=== PATIENT | female | born 1960 | race Caucasian/White ===

== ENCOUNTER 2020-03-25 07:39 | Day surgery (SDC) | payer BC, OTHER ==
[~2020-03-25 07:39] MED LIST: Midazolam 1 MG/ML 2 ML SDV ONE; fentaNYL 100 MCG/2 ML SDV ONE
[2020-03-25] MEDS ORDERED: Midazolam 1 MG/ML 2 ML SDV IV ONE ×10 (07:40→08:45)
[2020-03-25] MEDS ORDERED: fentaNYL 100 MCG/2 ML SDV IV ONE ×3 (07:40→08:35)
[2020-03-25] MEDS ORDERED: Dextrose 5%-0.45% NaCl 1,000 ML IV SCH (08:30)
[2020-03-25 13:58] VITALS: BP 118/73; PULSE 46
--- NOTE | 2020-03-25 15:08 | OR ---
DATE: 03/25/2020 PREOPERATIVE DIAGNOSIS: Screening colonoscopy. POSTOPERATIVE DIAGNOSIS: Screening colonoscopy. PROCEDURE: Total colonoscopy. ANESTHESIA: Conscious sedation with IV Versed and fentanyl. SPECIMEN: None. FINDINGS: Normal colonoscopy. RECOMMENDATIONS: Followup screening colonoscopy in10 years or earlier for symptoms. INDICATION FOR PROCEDURE: This 60-year-old female had a colonoscopy about 15 years ago. She is due for followup screening. PROCEDURE IN DETAIL: After adequate preparation, a colonoscope was inserted into the rectum. This was easily passed all the way to the cecum. Confirmation of the cecum was made by visualization of the ileocecal valve and the appendiceal orifice. The bowel prep was excellent. On withdrawal of the scope, no abnormalities were noted. There are no polyps, bleeding sites, colitis, or evidence of diverticula. Rectal and anal examination were also normal. Air was suctioned from the colon and the scope removed. [facility] /[id number]
== END 2020-03-25 10:35 | disposition home or self-care (01) ==
LOC: DL.ENDO 07:39
PROVIDERS: ATTEND Surgery
DX: Z12.11 Encounter for screening for malignant neoplasm of colon (principal); Z79.82 Long term (current) use of aspirin; Z98.890 Other specified postprocedural states; Z88.6 Allergy status to analgesic agent; Z88.1 Allergy status to other antibiotic agents; Z91.040 Latex allergy status; Z91.013 Allergy to seafood; Z88.5 Allergy status to narcotic agent
CPT/HCPCS: 45378; J2250; J3010; J7042

== ENCOUNTER 2020-06-23 14:26 | Observation (INO) | payer BC, OTHER ==
[2020-06-23] MEDS ORDERED: Sodium Chloride 0.9% 10 ML Syringe FLUSH PRN (14:29)
[2020-06-23] MEDS ORDERED: Ondansetron 4 MG/2 ML SDV IV ONE (14:52)
[2020-06-23 15:26] LABS: ANION GAP 13.9 mEq/L (7-13); CHLORIDE,CL 101 mmol/L (98-107); SODIUM,NA 140 mmol/L (136-145)
--- NOTE | 2020-06-23 15:33 | CT ---
PROCEDURE INFORMATION: Exam: CT Head Without Contrast Exam date and time: 06/23/2020 3:13 PM Age: 60 years old Clinical indication: Syncope and collapse TECHNIQUE: Imaging protocol: Computed tomography of the head without contrast. Radiation optimization: All CT scans at this facility use at least one of these dose optimization techniques: automated exposure control; mA and/or kV adjustment per patient size (includes targeted exams where dose is matched to clinical indication); or iterative reconstruction. COMPARISON: No relevant prior studies available. FINDINGS: Brain: Normal. No hemorrhage. Unremarkable white matter. No mass effect. Cerebral ventricles: No ventriculomegaly. Bones/joints: Unremarkable. No acute fracture. Paranasal sinuses: Visualized sinuses are unremarkable. No fluid levels. Mastoid air cells: Visualized mastoid air cells are well aerated. Soft tissues: Unremarkable. IMPRESSION: No acute intracranial abnormality.
[2020-06-23] MEDS ORDERED: Lidocaine 1% 30 ML SDV ONE (15:35)
[2020-06-23] MEDS ORDERED: Famotidine 20 MG/2 ML SDV IVPUSH ONE (15:37)
--- NOTE | 2020-06-23 15:54 | EDM.PDOC ---
Scribed by Dinora Akers 06/23/20 1518 for Vazquez León MD ED HPI GENERAL MEDICAL PROBLEM - General Chief Complaint: Syncope Stated Complaint: UNKNOWN Time Seen by Provider: 06/23/20 14:35 Source of Information: Reports: Patient, RN, RN Notes Reviewed History Limitations: Reports: No Limitations - History of Present Illness INITIAL COMMENTS - FREE TEXT/NARRATIVE: Patient presents to ED by wheelchair from the OB Department as she was witnessed going unresponsive for several seconds while being spoken to by an other co- worker. She was reported to twitch mildly before opening eyes and then became nauseated and dry heaving. Patient is currently alert and orientated and has complaint of chest discomfort and left shoulder pain upon arrival to the ER. Onset: Today Duration: Resolved Prior to Arrival Location: Reports: Generalized Severity: Moderate Improves with: Reports: None Worsens with: Reports: None Associated Symptoms: Reports: No Other Symptoms Left Shoulder Pain Score (Numeric/FACES): 3 - Related Data Allergies Allergy/AdvReac Type Severity Reaction Status Date / Time aspirin Allergy Weakness Verified 06/23/20 14:38 fish oil Allergy Cannot Verified 06/23/20 14:38 Remember Iodinated Contrast Media Allergy Nausea Verified 06/23/20 14:38 [Iodinated Contrast Media - IV Dye] Latex, Natural Rubber Allergy Rash Verified 06/23/20 14:38 levofloxacin [From Levaquin] Allergy Hives Verified 06/23/20 14:38 morphine Allergy Nausea Verified 06/23/20 14:38 povidone-iodine Allergy Hives Verified 06/23/20 14:38 [From Betadine] shellfish derived Allergy Cannot Verified 06/23/20 14:38 Remember soap [From Betadine] Allergy Hives Verified 06/23/20 14:38 control pills Allergy Other Uncoded 06/23/20 14:38 Home Meds: Home Meds Celecoxib [CeleBREX] 200 mg PO BID 05/19/14 [History] Citalopram Hydrobromide [Celexa] 40 mg PO BEDTIME 05/19/14 [History] Levothyroxine [Sythroid] 100 mcg PO DAILY 05/19/14 [History] Triamterene/Hydrochlorothiazid [Dyazide 37.5-25 Capsule] 1 each PO DAILY 05/19/14 [History] Melatonin/Pyridoxine HCl (B6) [Melatonin 5 mg Tablet] 5 mg PO BEDTIME PRN 03/31/15 [History] Acyclovir [Zovirax] 1 - 2 tab PO ASDIRECTED PRN 04/05/19 [History] Clindamycin HCl 300 mg PO ASDIRECTED PRN 04/05/19 [History] Dicyclomine [Bentyl] 20 mg PO Q6H PRN 04/05/19 [History] Ketorolac [Toradol] 10 mg PO TID PRN 04/05/19 [History] Naproxen Sodium [Aleve] 220 mg PO TID PRN 04/05/19 [History] Penciclovir [Denavir] 5 gm TP ASDIRECTED PRN 04/05/19 [History] Phenazopyridine [Pyridium] 100 mg PO TID PRN 04/05/19 [History] nitrofurantoin macrocrystaL [Macrodantin] 50 mg PO DAILY 04/05/19 [History] Ascorbic Acid [Vitamin C] 1,000 mg PO DAILY 02/29/20 [History] Magnesium 30 mg PO DAILY 02/29/20 [History] Past Medical History HEENT History: Reports: Other (See Below) Other HEENT History: lasix procedure Cardiovascular History: Reports: Hypertension Respiratory History: Reports: None Gastrointestinal History: Reports: Irritable Bowel Syndrome Genitourinary History: Reports: UTI, Recurrent Other Genitourinary History: on daily antibiodic for uti [employer] History: Reports: Musculoskeletal History: Reports: Back Pain, Chronic, Neck Pain, Chronic Neurological History: Reports: Migraines Psychiatric History: Reports: None Endocrine/Metabolic History: Reports: Hypothyroidism Hematologic History: Reports: None Immunologic History: Reports: None Oncologic (Cancer) History: Reports: None Dermatologic History: Reports: None - Infectious Disease History Infectious Disease History: Reports: Chicken Pox, Measles - Past Surgical History HEENT Surgical History: Reports: None Cardiovascular Surgical History: Reports: None GI Surgical History: Reports: Katia Fundoplication, Other (See Below) Female Surgical History: Reports: Hysterectomy Other Female Surgeries/Procedures: urethral dilation, bladder repair Neurological Surgical History: Reports: Laminectomy Musculoskeletal Surgical History: Reports: Knee Replacement, Other (See Below) Other Musculoskeletal Surgeries/Procedures:: 3 vertebrae fused Social & Family History - Family History Family Medical History: Noncontributory - Caffeine Use Caffeine Use: Reports: Coffee Caffeine Use Comment: 16 oz daily ED ROS GENERAL - Review of Systems Review Of Systems: Comprehensive ROS is negative, except as noted in HPI. ED EXAM, GENERAL - Physical Exam Exam: See Below Exam Limited By: No Limitations General Appearance: Alert, Anxious, Mild Distress, Obese Eye Exam: Bilateral Eye: EOMI, Normal Inspection (No scleral icterus), PERRL Nose: Normal Inspection, Normal Mucosa, No Blood Throat/Mouth: Normal Inspection, Normal Lips, Normal Teeth, Normal Gums, Normal Oropharynx, Normal Voice, No Airway Compromise Head: Atraumatic, Normocephalic Neck: Normal Inspection, Supple, Non-Tender, Full Range of Motion Respiratory/Chest: No Respiratory Distress, Lungs Clear, Normal Breath Sounds, No Accessory Muscle Use, Chest Non-Tender Cardiovascular: Normal Peripheral Pulses, Regular Rate, Rhythm, No Edema, No Gallop, No JVD GI/Abdominal: Normal Bowel Sounds, Soft, Non-Tender, No Organomegaly, No Distention, No Abnormal Bruit, No Mass Back Exam: Normal Inspection, Full Range of Motion, NT Extremities: Normal Inspection, Normal Range of Motion, Non-Tender, Normal Capillary Refill, No Pedal Edema Neurological: Alert, Oriented, CN II-XII Intact, Normal Cognition, No Motor/Sensory Deficits Psychiatric: Anxious Skin Exam: Warm, Intact, Normal Color, Diaphoretic. No: Cyanosis, Ecchymosis, Jaundice, Petechiae #1 Interpretation EKG Date: 06/23/20 Time: 14:40 Rhythm: Other (sinus rhythm) Rate (Beats/Min): 64 [place]: Normal P-Wave: Present QRS: Other (early precordial R/S tramsition.) Course - Vital Signs Last Recorded V/S: Last Vital Signs Temp 97.9 F 06/23/20 14:41 Pulse 68 06/23/20 14:41 Resp 14 06/23/20 14:41 BP 120/53 L 06/23/20 14:41 Pulse Ox 100 06/23/20 14:41 Orthostatic Blood Pressure [ 100/50 Standing] Orthostatic Blood Pressure [ 93/50 Sitting] Orthostatic Blood Pressure [ 96/54 Supine] Not orthostatic. - Orders/Labs/Meds Orders: Active Orders 24 hr Category Date Time Status Admission Diagnosis [ADT] Routine ADT 06/23/20 15:40 Ordered Patient Status [ADT] Routine ADT 06/23/20 15:40 Active EKG 12 Lead [EKG Documentation Completion] [RC] STAT Care 06/23/20 14:28 Active Peripheral IV Care [RC] . DIRECTED Care 06/23/20 14:29 Active Chest 1V Frontal [CR] Stat Exams 06/23/20 14:28 Taken CBC WITH AUTO DIFF [HEME] Stat Lab 06/23/20 14:36 Results CORONAVIRUS COVID-19 RAPID [MOLEC] Stat Lab 06/23/20 14:55 Received MANUAL DIFFERENTIAL QA/NC [HEME] Stat Lab 06/23/20 14:36 Results Sodium Chloride 0.9% [Saline Flush] Med 06/23/20 14:29 Active 10 ml FLUSH ASDIRECTED PRN Sodium Chloride 0.9% with KCl [Normal Saline with 40 Med 06/23/20 15:45 Active mEq KCl] 1,000 ml IV ASDIRECTED Peripheral IV Insertion Adult [OM.PC] Stat Oth 06/23/20 14:29 Ordered Medication Orders Potassium Chloride/Sodium Chloride (Normal Saline With 40 Meq Kcl) 1,000 mls @ 250 mls/hr IV ASDIRECTED SKYE Sodium Chloride (Saline Flush) 10 ml FLUSH ASDIRECTED PRN PRN Reason: Keep Vein Open Last Admin: 06/23/20 14:57 Dose: 10 ml Documented by: CHRIS Labs: Laboratory Tests 06/23/20 06/23/20 06/23/20 Range/Units 14:36 14:36 14:36 WBC 9.5 (5.0-10.0) 10^3/uL RBC 4.92 (4.2-5.4) 10^6/uL Hgb 14.8 (12.0-16.0) g/dL Hct 42.9 (37.0-47.0) % MCV 87.2 (80-100) fL MCH 30.1 (27.0-34.0) pg MCHC 34.5 (33.0-35.0) g/dL Plt Count 245 (150-450) 10^3/uL Neut % (Auto) 49.8 (42.2-75.2) % Lymph % (Auto) 40.0 (20.5-50.1) % [place] % (Auto) 8.6 H (2-8) % Eos % (Auto) 1.2 (1.0-3.0) % Baso % (Auto) 0.4 (0.0-1.0) % Add Manual Diff Yes D-Dimer, Quantitative 397 (0-400) ng/mL Sodium 140 (136-145) mmol/L Potassium 2.9 L (3.5-5.1) mmol/L Chloride 101 (98-107) mmol/L Carbon Dioxide 28 (21-32) mmol/L Anion Gap 13.9 H (7-13) mEq/L BUN 21 H (7-18) mg/dL Creatinine 0.94 (0.55-1.02) mg/dL Est Cr Clr Drug Dosing 56.33 mL/min Estimated GFR (MDRD) > 60 BUN/Creatinine Ratio 22.3 (No establ ref range) Glucose 116 H (74-99) mg/dL Calcium 9.2 (8.5-10.1) mg/dL Total Bilirubin 0.3 (0.2-1.0) mg/dL AST 11 L (15-37) U/L ALT 21 (14-59) U/L Alkaline Phosphatase 76 (46-116) U/L Creatine Kinase 62 (16-191) U/L Troponin I < 0.017 (0.000-0.056) ng/mL Total Protein 7.0 (6.4-8.2) g/dL Albumin 3.6 (3.4-5.0) g/dL Globulin 3.4 Albumin/Globulin Ratio 1.1 Amylase (25-115) U/L Lipase (73-393) U/L Urine Color (YELLOW) Urine Appearance (CLEAR) Urine pH (5.0-9.0) Ur Specific [place] (1.005-1.030) Urine Protein (NEGATIVE) Urine Glucose (UA) (NEGATIVE) Urine Ketones (NEGATIVE) Urine Occult Blood (NEGATIVE) Urine Nitrite (NEGATIVE) Urine Bilirubin (NEGATIVE) Urine Urobilinogen (0.2-1.0) mg/dL Ur Leukocyte Esterase (NEGATIVE) 06/23/20 06/23/20 Range/Units 14:36 15:05 WBC (5.0-10.0) 10^3/uL RBC (4.2-5.4) 10^6/uL Hgb (12.0-16.0) g/dL Hct (37.0-47.0) % MCV (80-100) fL MCH (27.0-34.0) pg MCHC (33.0-35.0) g/dL Plt Count (150-450) 10^3/uL Neut % (Auto) (42.2-75.2) % Lymph % (Auto) (20.5-50.1) % [place] % (Auto) (2-8) % Eos % (Auto) (1.0-3.0) % Baso % (Auto) (0.0-1.0) % Add Manual Diff D-Dimer, Quantitative (0-400) ng/mL Sodium (136-145) mmol/L Potassium (3.5-5.1) mmol/L Chloride (98-107) mmol/L Carbon Dioxide (21-32) mmol/L Anion Gap (7-13) mEq/L BUN (7-18) mg/dL Creatinine (0.55-1.02) mg/dL Est Cr Clr Drug Dosing mL/min Estimated GFR (MDRD) BUN/Creatinine Ratio (No establ ref range) Glucose (74-99) mg/dL Calcium (8.5-10.1) mg/dL Total Bilirubin (0.2-1.0) mg/dL AST (15-37) U/L ALT (14-59) U/L Alkaline Phosphatase (46-116) U/L Creatine Kinase (16-191) U/L Troponin I (0.000-0.056) ng/mL Total Protein (6.4-8.2) g/dL Albumin (3.4-5.0) g/dL Globulin Albumin/Globulin Ratio Amylase 58 (25-115) U/L Lipase 108 (73-393) U/L Urine Color Yellow (YELLOW) Urine Appearance Clear (CLEAR) Urine pH 7.0 (5.0-9.0) Ur Specific [place] >= 1.030 (1.005-1.030) Urine Protein Negative (NEGATIVE) Urine Glucose (UA) Negative (NEGATIVE) Urine Ketones Negative (NEGATIVE) Urine Occult Blood Negative (NEGATIVE) Urine Nitrite Negative (NEGATIVE) Urine Bilirubin Negative (NEGATIVE) Urine Urobilinogen 0.2 (0.2-1.0) mg/dL Ur Leukocyte Esterase Negative (NEGATIVE) Meds: Medications Generic Name Dose Route Start Last Admin Trade Name Freq PRN Reason Stop Dose Admin Potassium Chloride/Sodium Chloride 1,000 mls @ 250 mls/hr 06/23/20 15:45 Normal Saline With 40 Meq Kcl IV ASDIRECTED SKYE Sodium Chloride 10 ml 06/23/20 14:29 06/23/20 14:57 Saline Flush FLUSH 10 ml ASDIRECTED PRN Administration Keep Vein Open Discontinued Medications Generic Name Dose Route Start Last Admin Trade Name Freq PRN Reason Stop Dose Admin Famotidine 20 mg 06/23/20 15:37 06/23/20 15:43 Pepcid IVPUSH 06/23/20 15:38 20 mg ONETIME ONE Administration Lidocaine HCl 2 ml 06/23/20 15:35 Xylocaine-Mpf 1% .XX 06/23/20 15:36 ONETIME ONE Ondansetron HCl 4 mg 06/23/20 14:52 06/23/20 14:56 Zofran IV 06/23/20 14:53 4 mg ONETIME ONE Administration - Radiology Interpretation Free Text/Narrative:: [facility] Final Radiology Report Call: [phone] assistance Online chat: [email or web address] Name: MARY CASTORENA Age: 60Years F Date: 06/23/2020 SSN: -- : 1960 Study: CT HEAD WO CONT Requesting Physician: VAZQUEZ LEÓN Images: [id number] Addl Studies: Provided Clinical History: syncope Contrast: Without Contrast Medium: Contrast Amount: Contrast Method: CONFIDENTIALITY STATEMENT This report is intended only for use by the referring physician, and only in accordance with law. If you received this in error, call [phone]. Page 1 of 1 PROCEDURE INFORMATION: Exam: CT Head Without Contrast Exam date and time: 06/23/2020 3:13 PM Age: 60 years old Clinical indication: Syncope and collapse TECHNIQUE: Imaging protocol: Computed tomography of the head without contrast. Radiation optimization: All CT scans at this facility use at least one of these dose optimization techniques: automated exposure control; mA and/or kV adjustment per patient size (includes targeted exams where dose is matched to clinical indication); or iterative reconstruction. COMPARISON: No relevant prior studies available. FINDINGS: Brain: Normal. No hemorrhage. Unremarkable white matter. No mass effect. Cerebral ventricles: No ventriculomegaly. Bones/joints: Unremarkable. No acute fracture. Paranasal sinuses: Visualized sinuses are unremarkable. No fluid levels. Mastoid air cells: Visualized mastoid air cells are well aerated. Soft tissues: Unremarkable. IMPRESSION: No acute intracranial abnormality. Thank you for allowing us to participate in the care of your patient. Dictated and Authenticated by: Basilia Victoria MD 06/23/2020 3:33 PM Central Time ([place] & [place]) Departure - Departure Time of Disposition: 15:53 (admitted to Dr. Carver) Disposition: Refer to Observation Condition: Undetermined Clinical Impression: Syncope Qualifiers: Syncope type: unspecified Qualified Code(s): R55 - Syncope and collapse - Discharge Information *PRESCRIPTION DRUG MONITORING PROGRAM REVIEWED*: Not Applicable *COPY OF PRESCRIPTION DRUG MONITORING REPORT IN PATIENT SARA: Not Applicable Sepsis Event Note (ED) - Focused Exam Vital Signs: Vital Signs Temp Pulse Resp BP Pulse Ox 06/23/20 14:41 97.9 F 68 14 120/53 L 100 - My Orders Last 24 Hours: My Active Orders 06/23/20 14:28 EKG 12 Lead [EKG Documentation Completion] [RC] STAT Chest 1V Frontal [CR] Stat 06/23/20 14:29 Peripheral IV Care [RC] . DIRECTED Sodium Chloride 0.9% [Saline Flush] 10 ml FLUSH ASDIRECTED PRN Peripheral IV Insertion Adult [OM.PC] Stat 06/23/20 14:36 CBC WITH AUTO DIFF [HEME] Stat MANUAL DIFFERENTIAL QA/NC [HEME] Stat 06/23/20 14:55 CORONAVIRUS COVID-19 RAPID [MOLEC] Stat 06/23/20 15:45 Sodium Chloride 0.9% with KCl [Normal Saline with 40 mEq KCl] 1,000 ml IV ASDIRECTED - Assessment/Plan Last 24 Hours: My Active Orders 06/23/20 14:28 EKG 12 Lead [EKG Documentation Completion] [RC] STAT Chest 1V Frontal [CR] Stat 06/23/20 14:29 Peripheral IV Care [RC] . DIRECTED Sodium Chloride 0.9% [Saline Flush] 10 ml FLUSH ASDIRECTED PRN Peripheral IV Insertion Adult [OM.PC] Stat 06/23/20 14:36 CBC WITH AUTO DIFF [HEME] Stat MANUAL DIFFERENTIAL QA/NC [HEME] Stat 06/23/20 14:55 CORONAVIRUS COVID-19 RAPID [MOLEC] Stat 06/23/20 15:45 Sodium Chloride 0.9% with KCl [Normal Saline with 40 mEq KCl] 1,000 ml IV ASDIRECTED I have read and agree with the documentation that has been completed regarding this visit. By signing this record, I attest that the documentation was completed in my physical presence and is an accurate record of the encounter.
--- NOTE | 2020-06-23 16:04 | CR ---
PROCEDURE INFORMATION: Exam: XR Chest, 1 View Exam date and time: 06/23/2020 2:43 PM Age: 60 years old Clinical indication: Other: Syncope TECHNIQUE: Imaging protocol: XR of the chest Views: 1 view. COMPARISON: No relevant prior studies available. FINDINGS: Lungs: No evidence of acute pulmonary process. Pleural space: Unremarkable. No pleural effusion. No pneumothorax. Heart/Mediastinum: Unremarkable. No cardiomegaly. Diaphragm: Mild left hemidiaphragm elevation. Bones/joints: Unremarkable. IMPRESSION: No evidence of acute pulmonary process.
[2020-06-23] MEDS: Sodium Chloride 0.9% with KCl 1,000 ML IV SCH ×2 (16:42→20:56)
[2020-06-23] MEDS ORDERED: Ketorolac 10 MG Tab PO PRN (17:06)
[2020-06-23] MEDS ORDERED: Dicyclomine 10 MG Cap PO PRN (17:06)
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
[2020-06-23] MEDS ORDERED: Ondansetron 4 MG/2 ML SDV IVPUSH PRN (17:17)
[2020-06-23] MEDS ORDERED: Ibuprofen 400 MG Tab PO PRN (17:17)
[2020-06-23] MEDS ORDERED: Acetaminophen/HYDROcodone 325-10 MG Tab PO PRN (17:17)
[2020-06-23] MEDS ORDERED: Zolpidem 5 MG Tab PO PRN (17:17)
[2020-06-23] MEDS ORDERED: Ondansetron 4 MG Tab.DIS PO PRN (17:17)
[2020-06-23] MEDS ORDERED: Acetaminophen 325 MG Tab PO PRN (17:17)
[2020-06-23] MEDS ORDERED: Citalopram 20 MG Tab PO SCH (21:00)
[2020-06-23] MEDS ORDERED: Celecoxib 100 MG Cap PO SCH (21:00)
[2020-06-23] MEDS: Potassium Chloride 10 MEQ Tab.ER PO SCH (21:25)
[2020-06-23] MEDS: Heparin Sodium 5,000 Units/ML Vial SUBCUT SCH (21:28)
[2020-06-24] MEDS: Heparin Sodium 5,000 Units/ML Vial SUBCUT SCH (06:02)
[2020-06-24 07:18] LABS: ANION GAP 9.5 mEq/L (7-13); CHLORIDE,CL 108 mmol/L (98-107); SODIUM,NA 142 mmol/L (136-145)
[2020-06-24 08:20] VITALS: BP 116/53; PULSE 54
[2020-06-24] MEDS ORDERED: Hydrochlorothiazide/Triamterene 25-37.5 Tab PO SCH (09:00)
[2020-06-24] MEDS ORDERED: NITROFURANTOIN MACROCRYSTAL 50 MG PO SCH (09:00)
[2020-06-24] MEDS ORDERED: Non-Formulary Medication 1 Each (Magnesium [Magnesium] 30 MG) PO SCH (09:00)
[2020-06-24] MEDS ORDERED: Levothyroxine 100 MCG Tab PO SCH (09:00)
[2020-06-24] MEDS: Potassium Chloride 10 MEQ Tab.ER PO SCH (09:53)
--- NOTE | 2020-06-24 10:02 | PCM.DCSUM1 ---
Discharge Summary - Hospital Course Free Text/Narrative:: 60-year-old the lady with a history of hypertension and migraine with right sided paresthesias presented with a 15 second witnessed syncopal episode. Syncope From neurological point of this might relate to a partial seizure, less likely TIA, possible complicated migraine she has a history of prior head trauma. remained stable overnight consider further outpatient workup with carotid ultrasound, echocardiogram,neurology evaluation, possible MRI From cardiac point the patient was noted to have hypokalemia and gives a history of the subjective tachy-arrhythmia in the past . remained NS on telemetry overnight Replaced potassium Consider prolonged outpatient cardiac monitoring eg. holter or loop recorder hypothyroidism Treat with Synthroid htn on tmt/hctz she will follow BPs at home f/up with PMD for further out pt studies that she would like to be arranged in [place] called local PMD - [phone] d/w dr. Enrique Velazquez Diagnosis: Stroke: No - Discharge Data Discharge Date: 06/24/20 Discharge Disposition: Home, Self-Care 01 Condition: Good - Referral to Home Health Primary Care Physician: PCP None - Discharge Diagnosis/Problem(s) (1) Hypokalemia SNOMED Code(s): 02368875 ICD Code: E87.6 - HYPOKALEMIA Status: Acute Current Visit: Yes (2) Hypertension SNOMED Code(s): 44876099 ICD Code: I10 - ESSENTIAL (PRIMARY) HYPERTENSION Status: Acute Current Visit: Yes (3) Hypothyroidism SNOMED Code(s): 47094731 ICD Code: E03.9 - HYPOTHYROIDISM, UNSPECIFIED Status: Acute Current Visit: Yes (4) Syncope SNOMED Code(s): 379474877 ICD Code: R55 - SYNCOPE AND COLLAPSE Status: Acute Current Visit: Yes Qualifiers: Syncope type: unspecified Qualified Code(s): R55 - Syncope and collapse - Patient Instructions Diet: Heart Healthy Diet Activity: As Tolerated - Discharge Plan *PRESCRIPTION DRUG MONITORING PROGRAM REVIEWED*: Not Applicable *COPY OF PRESCRIPTION DRUG MONITORING REPORT IN PATIENT SARA: Not Applicable Prescriptions/Med Rec: Ondansetron [Zofran ODT] 4 mg PO Q4H PRN #12 tab.dis PRN Reason: nausea, able to take PO Home Medications: Home Meds Celecoxib [CeleBREX] 200 mg PO BID 05/19/14 [History] Citalopram Hydrobromide [Celexa] 40 mg PO BEDTIME 05/19/14 [History] Levothyroxine [Synthroid] 100 mcg PO DAILY 05/19/14 [History] Triamterene/Hydrochlorothiazid [Dyazide 37.5-25] 1 each PO DAILY 05/19/14 [History] Melatonin/Pyridoxine HCl (B6) [Melatonin 5 mg Tablet] 5 mg PO BEDTIME PRN 03/31/15 [History] Acyclovir [Zovirax] 1 - 2 tab PO ASDIRECTED PRN 04/05/19 [History] Clindamycin HCl 300 mg PO ASDIRECTED PRN 04/05/19 [History] Dicyclomine [Bentyl] 20 mg PO Q6H PRN 04/05/19 [History] Ketorolac [Toradol] 10 mg PO TID PRN 04/05/19 [History] Naproxen Sodium [Aleve] 220 mg PO TID PRN 04/05/19 [History] Penciclovir [Denavir] 5 gm TP ASDIRECTED PRN 04/05/19 [History] Phenazopyridine [Pyridium] 100 mg PO TID PRN 04/05/19 [History] nitrofurantoin macrocrystaL [Macrodantin] 50 mg PO DAILY 04/05/19 [History] Ascorbic Acid [Vitamin C] 1,000 mg PO DAILY 02/29/20 [History] Magnesium 30 mg PO DAILY 02/29/20 [History] Ondansetron [Zofran ODT] 4 mg PO Q4H PRN #12 tab.dis 06/24/20 [Rx] Oxygen Therapy Mode: Room Air Patient Handouts: Hypokalemia Referrals: PCP,None [Primary Care Provider] - - Discharge Summary/Plan Comment DC Time >30 min.: No - General Info Date of Service: 06/24/20 Subjective Update: feeling well although tired. Uneventful night. Headache improved. No chest pain. No palpitation. - Patient Data Vitals - Most Recent: Last Vital Signs Temp 97.4 F 06/24/20 08:19 Pulse 54 L 06/24/20 08:19 Resp 20 06/24/20 08:19 BP 116/53 L 06/24/20 08:19 Pulse Ox 98 06/24/20 08:19 Orthostatic Blood Pressure [ 100/50 Standing] Orthostatic Blood Pressure [ 93/50 Sitting] Orthostatic Blood Pressure [ 96/54 Supine] Weight - Most Recent: 200 lb I&O - Last 24 hours: Intake & Output 06/23/20 06/24/20 06/24/20 22:59 06:59 14:59 Intake Total 1213 Output Total 1000 Balance 1213 -1000 Lab Results - Last 24 hrs: Laboratory Results - last 24 hr 06/23/20 06/23/20 06/23/20 Range/Units 14:36 14:36 14:36 WBC 9.5 (5.0-10.0) 10^3/uL RBC 4.92 (4.2-5.4) 10^6/uL Hgb 14.8 (12.0-16.0) g/dL Hct 42.9 (37.0-47.0) % MCV 87.2 (80-100) fL MCH 30.1 (27.0-34.0) pg MCHC 34.5 (33.0-35.0) g/dL Plt Count 245 (150-450) 10^3/uL Neut % (Auto) 49.8 (42.2-75.2) % Lymph % (Auto) 40.0 (20.5-50.1) % [place] % (Auto) 8.6 H (2-8) % Eos % (Auto) 1.2 (1.0-3.0) % Baso % (Auto) 0.4 (0.0-1.0) % Add Manual Diff Yes Neutrophils % (Manual) 48 (42-75) % Lymphocytes % (Manual) 45 (20-50) % Monocytes % (Manual) 5 (2-8) % Eosinophils % (Manual) 2 (1-3) % D-Dimer, Quantitative 397 (0-400) ng/mL Sodium 140 (136-145) mmol/L Potassium 2.9 L (3.5-5.1) mmol/L Chloride 101 (98-107) mmol/L Carbon Dioxide 28 (21-32) mmol/L Anion Gap 13.9 H (7-13) mEq/L BUN 21 H (7-18) mg/dL Creatinine 0.94 (0.55-1.02) mg/dL Est Cr Clr Drug Dosing 56.33 mL/min Estimated GFR (MDRD) > 60 BUN/Creatinine Ratio 22.3 (No establ ref range) Glucose 116 H (74-99) mg/dL Calcium 9.2 (8.5-10.1) mg/dL Phosphorus (2.6-4.7) mg/dL Magnesium (1.8-2.4) mg/dL Total Bilirubin 0.3 (0.2-1.0) mg/dL AST 11 L (15-37) U/L ALT 21 (14-59) U/L Alkaline Phosphatase 76 (46-116) U/L Creatine Kinase 62 (16-191) U/L Troponin I < 0.017 (0.000-0.056) ng/mL Total Protein 7.0 (6.4-8.2) g/dL Albumin 3.6 (3.4-5.0) g/dL Globulin 3.4 Albumin/Globulin Ratio 1.1 Amylase (25-115) U/L Lipase (73-393) U/L Urine Color (YELLOW) Urine Appearance (CLEAR) Urine pH (5.0-9.0) Ur Specific [place] (1.005-1.030) Urine Protein (NEGATIVE) Urine Glucose (UA) (NEGATIVE) Urine Ketones (NEGATIVE) Urine Occult Blood (NEGATIVE) Urine Nitrite (NEGATIVE) Urine Bilirubin (NEGATIVE) Urine Urobilinogen (0.2-1.0) mg/dL Ur Leukocyte Esterase (NEGATIVE) SARS CoV-2 RNA Rapid LAURA (NEGATIVE) 06/23/20 06/23/20 06/23/20 Range/Units 14:36 14:55 15:05 WBC (5.0-10.0) 10^3/uL RBC (4.2-5.4) 10^6/uL Hgb (12.0-16.0) g/dL Hct (37.0-47.0) % MCV (80-100) fL MCH (27.0-34.0) pg MCHC (33.0-35.0) g/dL Plt Count (150-450) 10^3/uL Neut % (Auto) (42.2-75.2) % Lymph % (Auto) (20.5-50.1) % [place] % (Auto) (2-8) % Eos % (Auto) (1.0-3.0) % Baso % (Auto) (0.0-1.0) % Add Manual Diff Neutrophils % (Manual) (42-75) % Lymphocytes % (Manual) (20-50) % Monocytes % (Manual) (2-8) % Eosinophils % (Manual) (1-3) % D-Dimer, Quantitative (0-400) ng/mL Sodium (136-145) mmol/L Potassium (3.5-5.1) mmol/L Chloride (98-107) mmol/L Carbon Dioxide (21-32) mmol/L Anion Gap (7-13) mEq/L BUN (7-18) mg/dL Creatinine (0.55-1.02) mg/dL Est Cr Clr Drug Dosing mL/min Estimated GFR (MDRD) BUN/Creatinine Ratio (No establ ref range) Glucose (74-99) mg/dL Calcium (8.5-10.1) mg/dL Phosphorus (2.6-4.7) mg/dL Magnesium (1.8-2.4) mg/dL Total Bilirubin (0.2-1.0) mg/dL AST (15-37) U/L ALT (14-59) U/L Alkaline Phosphatase (46-116) U/L Creatine Kinase (16-191) U/L Troponin I (0.000-0.056) ng/mL Total Protein (6.4-8.2) g/dL Albumin (3.4-5.0) g/dL Globulin Albumin/Globulin Ratio Amylase 58 (25-115) U/L Lipase 108 (73-393) U/L Urine Color Yellow (YELLOW) Urine Appearance Clear (CLEAR) Urine pH 7.0 (5.0-9.0) Ur Specific [place] >= 1.030 (1.005-1.030) Urine Protein Negative (NEGATIVE) Urine Glucose (UA) Negative (NEGATIVE) Urine Ketones Negative (NEGATIVE) Urine Occult Blood Negative (NEGATIVE) Urine Nitrite Negative (NEGATIVE) Urine Bilirubin Negative (NEGATIVE) Urine Urobilinogen 0.2 (0.2-1.0) mg/dL Ur Leukocyte Esterase Negative (NEGATIVE) SARS CoV-2 RNA Rapid LAURA Negative (NEGATIVE) 06/24/20 06/24/20 Range/Units 06:16 06:16 WBC 6.5 (5.0-10.0) 10^3/uL RBC 4.36 (4.2-5.4) 10^6/uL Hgb 13.2 D (12.0-16.0) g/dL Hct 39.6 (37.0-47.0) % MCV 90.8 D (80-100) fL MCH 30.3 (27.0-34.0) pg MCHC 33.3 (33.0-35.0) g/dL Plt Count 206 (150-450) 10^3/uL Neut % (Auto) 46.3 (42.2-75.2) % Lymph % (Auto) 42.0 (20.5-50.1) % [place] % (Auto) 8.9 H (2-8) % Eos % (Auto) 2.0 (1.0-3.0) % Baso % (Auto) 0.8 (0.0-1.0) % Add Manual Diff Neutrophils % (Manual) (42-75) % Lymphocytes % (Manual) (20-50) % Monocytes % (Manual) (2-8) % Eosinophils % (Manual) (1-3) % D-Dimer, Quantitative (0-400) ng/mL Sodium 142 (136-145) mmol/L Potassium 4.5 D (3.5-5.1) mmol/L Chloride 108 H (98-107) mmol/L Carbon Dioxide 29 (21-32) mmol/L Anion Gap 9.5 (7-13) mEq/L BUN 14 (7-18) mg/dL Creatinine 0.72 (0.55-1.02) mg/dL Est Cr Clr Drug Dosing 73.54 mL/min Estimated GFR (MDRD) > 60 BUN/Creatinine Ratio (No establ ref range) Glucose 92 (74-99) mg/dL Calcium 8.4 L (8.5-10.1) mg/dL Phosphorus 3.2 (2.6-4.7) mg/dL Magnesium 1.8 (1.8-2.4) mg/dL Total Bilirubin (0.2-1.0) mg/dL AST (15-37) U/L ALT (14-59) U/L Alkaline Phosphatase (46-116) U/L Creatine Kinase (16-191) U/L Troponin I < 0.017 (0.000-0.056) ng/mL Total Protein (6.4-8.2) g/dL Albumin (3.4-5.0) g/dL Globulin Albumin/Globulin Ratio Amylase (25-115) U/L Lipase (73-393) U/L Urine Color (YELLOW) Urine Appearance (CLEAR) Urine pH (5.0-9.0) Ur Specific [place] (1.005-1.030) Urine Protein (NEGATIVE) Urine Glucose (UA) (NEGATIVE) Urine Ketones (NEGATIVE) Urine Occult Blood (NEGATIVE) Urine Nitrite (NEGATIVE) Urine Bilirubin (NEGATIVE) Urine Urobilinogen (0.2-1.0) mg/dL Ur Leukocyte Esterase (NEGATIVE) SARS CoV-2 RNA Rapid LAURA (NEGATIVE) Med Orders - Current: Current Medications Acetaminophen (Tylenol) 650 mg PO Q4H PRN PRN Reason: Pain (Mild 1-3)/fever Hydrocodone Bitart/Acetaminophen ([place] 325-10 Mg) 1 tab PO Q4H PRN PRN Reason: severe pain Last Admin: 06/23/20 21:26 Dose: 1 tab Documented by: Celecoxib (Celebrex) 200 mg PO BID [facility] Last Admin: 06/23/20 21:27 Dose: 200 mg Documented by: Citalopram Hydrobromide (Celexa) 40 mg PO BEDTIME [facility] Last Admin: 06/23/20 21:28 Dose: 40 mg Documented by: Dicyclomine HCl (Bentyl) 20 mg PO Q6H PRN PRN Reason: Abdominal Pain Heparin Sodium (Porcine) (Heparin Sodium) 5,000 units SUBCUT Q8HR [facility] Last Admin: 06/24/20 06:02 Dose: Not Given Documented by: Potassium Chloride/Sodium Chloride (Normal Saline With 40 Meq Kcl) 1,000 mls @ 75 mls/hr IV ASDIRECTED [facility] Last Admin: 06/23/20 20:56 Dose: 75 mls/hr Documented by: Ibuprofen (Motrin) 400 mg PO Q6H PRN PRN Reason: moderate pain Ketorolac Tromethamine (Toradol) 10 mg PO TID PRN PRN Reason: Headache Stop: 06/28/20 17:07 Levothyroxine Sodium (Synthroid) 100 mcg PO DAILY [facility] Non-Formulary Medication (Magnesium [Magnesium]) 30 mg PO DAILY [facility] Non-Formulary Medication (Nitrofurantoin Macrocrystal [Macrodantin]) 50 mg PO DAILY [facility] Ondansetron HCl (Zofran Odt) 4 mg PO Q4H PRN PRN Reason: nausea, able to take PO Last Admin: 06/23/20 21:26 Dose: 4 mg Documented by: Ondansetron HCl (Zofran) 4 mg IVPUSH Q4H PRN PRN Reason: Nausea/Vomiting Sodium Chloride (Saline Flush) 10 ml FLUSH ASDIRECTED PRN PRN Reason: Keep Vein Open Last Admin: 06/23/20 14:57 Dose: 10 ml Documented by: Triamterene/HCTZ (Maxzide 25-37.5 Mg) 1 each PO DAILY [facility] Zolpidem Tartrate (Ambien) 5 mg PO BEDTIME PRN PRN Reason: Sleep Last Admin: 06/23/20 22:23 Dose: 5 mg Documented by: Discontinued Medications Famotidine (Pepcid) 20 mg IVPUSH ONETIME ONE Stop: 06/23/20 15:38 Last Admin: 06/23/20 15:43 Dose: 20 mg Documented by: Lidocaine HCl (Xylocaine-Mpf 1%) 2 ml .XX ONETIME ONE Stop: 06/23/20 15:36 Last Admin: 06/23/20 16:41 Dose: 2 ml Documented by: Ondansetron HCl (Zofran) 4 mg IV ONETIME ONE Stop: 06/23/20 14:53 Last Admin: 06/23/20 14:56 Dose: 4 mg Documented by: Potassium Chloride (Klor-Con 10) 40 meq PO TID SKYE Stop: 06/24/20 09:01 Last Admin: 06/23/20 21:25 Dose: 40 meq Documented by: - Exam Quality Assessment: Denies: Supplemental Oxygen General: Reports: Alert, Oriented Neck: Reports: Supple Lungs: Reports: Clear to Auscultation, Normal Respiratory Effort Cardiovascular: Reports: Regular Rate, Regular Rhythm GI/Abdominal Exam: Normal Bowel Sounds, Soft, Non-Tender Extremities: No Pedal Edema
== END 2020-06-24 10:46 | disposition home or self-care (01) ==
LOC: DL.ED 14:26 → DL.MS 15:40
PROVIDERS: ADMIT Internal Medicine; ATTEND Internal Medicine
DX: R55 Syncope and collapse (principal); E03.9 Hypothyroidism, unspecified; I10 Essential (primary) hypertension; G89.29 Other chronic pain; E87.6 Hypokalemia; G43.909 Migraine, unspecified, not intractable, without status migrainosus; Z20.828 Contact with and (suspected) exposure to other viral communicable diseases; Z88.8 Allergy status to other drugs, medicaments and biological substances; Z91.041 Radiographic dye allergy status; Z88.5 Allergy status to narcotic agent; Z91.013 Allergy to seafood; Z91.048 Other nonmedicinal substance allergy status; Z79.899 Other long term (current) drug therapy; Z79.890 Hormone replacement therapy; Z98.890 Other specified postprocedural states
CPT/HCPCS: 36415; 70450; 71045; 80048; 80053; 81003; 82150; 82550; 83690; 83735; 84100; 84484; 85025; 85379; 87635; 93005; 96374; 96375; 99285; A9270; J2001; J2405; J3480; J3490; U0002

== ENCOUNTER 2024-11-30 09:41 | Emergency (ER) | payer BC, OTHER ==
[2024-11-30] MEDS: Ondansetron 4 MG/2 ML SDV IVPUSH ONE (10:00)
[2024-11-30] MEDS: diphenhydrAMINE 50 MG/ML SDV IVPUSH ONE (10:00)
[2024-11-30] MEDS: LORazepam 2 MG/ML SDV IVPUSH ONE (10:00)
[2024-11-30 10:01] LABS: BASOPHILS PERCENT AUTO 0.6 % (0.0-1.0); EOSINOPHILS PERCENT AUTO 1.6 % (1.0-3.0); HEMATOCRIT 44.1 % (37.0-47.0); HEMOGLOBIN 14.8 g/dL (12.0-16.0); LYMPHOCYTES PERCENT AUTO 36.1 % (20.5-50.1); MEAN CORPUSCULAR HEMOGLOBIN 29.6 pg (27.0-34.0); MEAN CORPUSCULAR HGB CONC 33.6 g/dL (33.0-35.0); MEAN CORPUSCULAR VOLUME 88.2 fL (80-100); MONOCYTES PERCENT AUTO 7.9 % (2-8); NEUTROPHILS PERCENT AUTO 53.8 % (42.2-75.2); PLATELET COUNT,PLT 304 10^3/uL (150-450); WHITE BLOOD CELL COUNT,WBC 9.6 10^3/uL (5.0-10.0)
[2024-11-30 10:24] LABS: ALANINE AMINOTRANSFERASE,ALT 15 U/L (14-59); ALBUMIN 3.5 g/dL (3.4-5.0); ALKALINE PHOSPHATASE 71 U/L (46-116); ANION GAP 14.7 mEq/L (7-13); ASPARTATE AMNIOTRANSFERASE,AST 10 U/L (15-37); BILIRUBIN TOTAL 0.5 mg/dL (0.2-1.0); BLOOD UREA NITROGEN,BUN 13 mg/dL (7-18); BUN/CREATININE RATIO 13.4 (No establ ref range); CALCIUM 9.1 mg/dL (8.5-10.1); CARBON DIOXIDE,CO2 25 mmol/L (21-32); CHLORIDE,CL 108 mmol/L (98-107); CREATININE 0.97 mg/dL (0.55-1.02); GLUCOSE RANDOM 127 mg/dL (70-99); MAGNESIUM 1.6 mg/dL (1.8-2.4); POTASSIUM,K 3.7 mmol/L (3.5-5.1); PROTEIN TOTAL,TP 6.9 g/dL (6.4-8.2); SODIUM,NA 144 mmol/L (136-145)
[2024-11-30 10:28] LABS: C-REACTIVE PROTEIN < 0.50 ng/dL (<=0.50); ESTIMATED GFR 66 mL/min (>=60)
[2024-11-30] MEDS: Ondansetron 4 MG/2 ML SDV ONE (17:45)
[2024-11-30] MEDS: diphenhydrAMINE 50 MG/ML SDV ONE (17:46)
== END 2024-11-30 12:10 | disposition home or self-care (01) ==
LOC: DL.ED 09:41
DX: F41.0 Panic disorder [episodic paroxysmal anxiety] (principal); I10 Essential (primary) hypertension; E03.9 Hypothyroidism, unspecified; E66.9 Obesity, unspecified; K21.9 Gastro-esophageal reflux disease without esophagitis; M19.90 Unspecified osteoarthritis, unspecified site; Z88.6 Allergy status to analgesic agent; Z91.013 Allergy to seafood; Z88.8 Allergy status to other drugs, medicaments and biological substances; Z91.040 Latex allergy status; Z91.048 Other nonmedicinal substance allergy status; Z79.899 Other long term (current) drug therapy; Z79.890 Hormone replacement therapy; Z90.710 Acquired absence of both cervix and uterus
CPT/HCPCS: 36415; 71045; 80053; 83735; 84484; 85025; 86140; 87428; 96374; 96375; 99285; J1200; J2060; J2405; 99283